=== PATIENT | female | born 1960 | race Caucasian/White ===

== ENCOUNTER 2018-03-15 11:55 | Emergency (ER) | payer BC ==
[2018-03-15 12:26] VITALS: BP 123/68
--- NOTE | 2018-03-15 12:33 | UC ---
Bite Injury/Animal HPI - HPI Summary HPI Summary: 57 YO F C/O MULTIPLE BEE STINGS 2 DAYS AGO. SWELLING, REDNESS AND ITCHING SINCE THEN. NO SOB. NO DIFFICULTY BREATHING OR SWALLOWING. NO FEVER. STINGS ON LEGS AND ARMS. - History of Current Complaint Chief Complaint: [place] Stated Complaint: MULTIPLE BEE STINGS Time Seen by Provider: 03/15/18 12:25 Hx Obtained From: Patient Severity Currently: Mild Severity Initially: Severe Pain Intensity: 8 Onset/Duration: Sudden Onset, Lasting Days Type of Bite: Wild Animal - BEES - Allergies/Home Medications Allergies/Adverse Reactions: Allergies Allergy/AdvReac Type Severity Reaction Status Date / Time amoxicillin Allergy Swelling Verified 03/15/18 12:19 Of Face,Lips,& Throat and Nausea with Vomiting aspirin Allergy Swelling Verified 03/15/18 12:19 Of Face,Lips,& Throat clarithromycin Allergy Swelling Verified 03/15/18 12:19 Of Face,Lips,& Throat and Nausea with Vomiting erythromycin base Allergy Swelling Verified 03/15/18 12:19 Of Face,Lips,& Throat and Nausea with Vomiting ibuprofen Allergy Swelling Verified 03/15/18 12:19 Of Face,Lips,& Throat Penicillins Allergy Swelling Verified 03/15/18 12:19 Of Face,Lips,& Throat and Nausea with Vomiting Home Medications: Home Medications Ospemifene [Osphena] 60 mg PO DAILY 03/15/18 [History Confirmed 03/15/18] Venlafaxine EXT RELEASE CAP* [Effexor Xr CAP*] 150 mg PO DAILY 03/15/18 [ History Confirmed 03/15/18] diphenhydrAMINE HCl [Benadryl LIQUID 12.5 MG/5 ML] 25 mg PO Q6H PRN 03/15/18 [ History Confirmed 03/15/18] PMH/Surg Hx/FS Hx/Imm Hx Previously Healthy: Yes Other Cardiovascular History: NO HTN Other Respiratory History: NO ASTHMA - Surgical History Surgical History: Yes Surgery Procedure, Year, and Place: Total Hysterectomy, 2014, [place]; C- Sections, 1987 1989 1990 1992, [place] - Family History Known Family History: Positive: Hypertension, Respiratory Disease - Social History Alcohol Use: None Substance Use Type: None Smoking Status (MU): Never Smoked Tobacco - Immunization History Most Recent Tetanus Shot: "I wanna say in the last five years." Review of Systems Constitutional: Negative Skin: Other - ERYTHEMA, SWELLING AND ITCHING AT BEE STING SITES ON ARMS AND LEGS Eyes: Negative ENT: Negative Respiratory: Negative Cardiovascular: Negative Motor: Negative Neurovascular: Negative Musculoskeletal: Negative Neurological: Negative Psychological: Negative Is Patient Immunocompromised?: No All Other Systems Reviewed And Are Negative: Yes Physical Exam Triage Information Reviewed: Yes Appearance: Well-Appearing, No Pain Distress, Well-Nourished Vital Signs: Initial Vital Signs Temp 99.2 F 03/15/18 12:15 Pulse 82 03/15/18 12:15 Resp 16 03/15/18 12:15 BP 123/68 03/15/18 12:15 Pulse Ox 99 03/15/18 12:15 Vital Signs Reviewed: Yes Eye Exam: Normal ENT Exam: Normal Neck exam: Normal Neck: Positive: Supple Respiratory Exam: Normal Respiratory: Positive: Lungs clear, Normal breath sounds, No respiratory distress Cardiovascular: Positive: RRR Musculoskeletal Exam: Normal Neurological Exam: Normal Psychological Exam: Normal Skin: Positive: rashes - ERYTHEMA, SWELLING ARMS AND LEGS Bite Injury Course/Dx - Course Course Of Treatment: NO RESPIRATORY SX. - Differential Dx/Diagnosis Provider Diagnoses: MULTIPLE BEE STINGS Discharge - Sign-Out/Discharge Documenting (check all that apply): Patient Departure - Discharge Plan Condition: Stable Disposition: HOME Prescriptions: Cephalexin CAP* [Keflex CAP*] 500 mg PO TID #21 cap predniSONE TAB* [Deltasone 20 MG TAB*] 40 mg PO DAILY #10 tab Patient Education Materials: Insect Bite or Sting (ED) Referrals: Pio ABURTO,Jose M Chaudhary [Primary Care Provider] - Additional Instructions: FOLLOW UP WITH YOUR DOCTOR IF NOT COMPLETELY IMPROVED. GET RECHECKED FOR ANY WORSENING OF YOUR CONDITION OR QUESTIONS OR CONCERNS. - Billing Disposition and Condition Condition: STABLE Disposition: Home
== END 2018-03-15 12:37 | disposition home or self-care (01) ==
LOC: UCCORT 11:55
DX: T63.441A Toxic effect of venom of bees, accidental (unintentional), initial encounter (principal); L53.0 Toxic erythema; M79.89 Other specified soft tissue disorders; Y92.9 Unspecified place or not applicable; Z88.0 Allergy status to penicillin; Z88.1 Allergy status to other antibiotic agents; Z88.6 Allergy status to analgesic agent
CPT/HCPCS: 99202; G0463